=== PATIENT | male | born 1995 | race American Indian/Alaskan Native ===

== ENCOUNTER 2016-10-13 11:10 | Emergency (ER) | payer OTHER ==
[~2016-10-13] VITALS: Ht 175.3 cm; Wt 91.6 kg
[~2016-10-13 11:10] MED LIST: IBUP-1050 PO
[2016-10-13 11:12] VITALS: Ht 175.3 cm; Wt 91.6 kg
[2016-10-13] MEDS ORDERED: [UNRECOGNIZED DRUG - OTHER] PO (11:28)
[2016-10-13] MEDS ORDERED: ERYOPO OPB (12:33)
[2016-10-13 12:55] VITALS: BP 151/89; PULSE 77; TEMP 36.5; O2SAT 96
--- NOTE | 2016-10-14 09:39 | EMERGENCY ROOM VISIT NOTE ---
ED Visit Note First contact with patient: 11:25 Chief Complaint: Sore throat and cough. History of Present Illness: Mr. Bella is a 21-year-old male who ambulates into the ED complaining of throat pain, cough, nasal congestion and bilateral eye drainage. Patient reports he has had throat pain for the last week. He describes his pain as a sharp sensation. He rates his discomfort 8/10. The pain is nonradiating. Pain worsens with swallowing. He has not identified any alleviating factors related to the pain. He has taken one dose of Tylenol Cold and Sinus approximately 24 hours ago without relief of his discomfort. Associated with his throat pain he reports he has had nasal congestion, nonproductive cough, bilateral ear pain and today he awoke with his eyes matted shut and has had eye drainage since this morning. He denies fevers, chills, sweats, skin eruptions, skin color changes, headache, dizziness, lightheadedness, visual changes, hearing changes, ear drainage, neck pain/stiffness, painful talking, drooling, inability to swallow, chest pain, shortness of breath, hemoptysis, wheezing, abdominal pain, nausea, vomiting, decreased appetite. Review of Systems: As noted above in history of present illness. 8 body systems were reviewed and found to be negative as noted above. Past Medical History: Unspecified stomach disorder. Current Medications: As noted above. Allergies to Medications: Patient denies. Social History: Patient is currently University student; he feels safe in his home environment; he admits to tobacco and alcohol use. Physical Examination: Vital Signs: Date Time Temp Pulse Resp B/P Pulse Ox O2 Delivery O2 Flow Rate FiO2 10/13/16 12:55 36.5 77 18 151/89 96 10/13/16 11:12 36.5 77 18 151/89 96 Room Air GENERAL: 21-year-old male in mild distress due to symptoms, nontoxic-appearing, afebrile and hemodynamically stable. NEUROLOGICAL: Awake, alert and oriented to person, place and time. Answering questions appropriately and following commands. Normal gait. Good hand eye coordination. SKIN: Warm, dry and pink. No soft tissue eruptions or trauma noted. HEENT: Atraumatic and normocephalic. PERRLA. EOMI without nystagmus. Sclera injected and conjunctiva mildly inflamed without active drainage. No tenderness over the frontal or maxillary sinuses. No external ear tenderness. Auditory canals are pink and patent. Tympanic membranes are pearly bell with normal light reflex. No drainage from naris but audible congestion. Oral cavity moist and pink. Airway patent. Uvula midline and no abscesses are seen. Pharynx is mildly erythematous but not edematous. No tonsillar hypertrophy or exudates. Posterior nasal dripping's were noted. Speech normal. No lymphadenopathy. Trachea midline. No jugular venous distention. No laryngeal tenderness. BACK: No tenderness over the bony cervical spine. Full range of motion of the cervical spine. THORAX: Lungs sounds are clear to auscultation and equal bilaterally with symmetrical chest wall. No wheezing, rales or rhonchi. ED Course: Patient is assessed as noted above. Rapid Strep Screen: Negative. Culture pending. Patient was educated about tonight's findings and instructed on his treatment plan; he verbalizes understanding and agreement with this plan. Clinical Impression: Acute pharyngitis. Bilateral conjunctivitis. Disposition: Patient discharged home in stable condition; prior to departure he was reassessed and subjectively reported he was pain-free. Plan: Patient was encouraged to alternate ibuprofen and acetaminophen every 3 hours as needed for pain. Patient was prescribed erythromycin ophthalmic ointment and instructed to use a half and under the lower eyelid 2 times a day for 5 days. Patient was encouraged to increase clear fluids and to use a liquid/mechanical soft diet until resolution of throat discomfort. Patient was encouraged to follow-up at [facility] [address] for recheck if no better in 3-5 days. Patient was encouraged return the ED for worsening/uncontrolled pain, uncontrolled fevers, vomiting, inability to swallow, drooling, worsening eye drainage, visual changes or any new/concerning symptoms.
== END 2016-10-13 12:57 | disposition home or self-care (01) ==
LOC: C.EDB 11:11 → C.EDC 12:57
DX: J02.9 Acute pharyngitis, unspecified (principal); H10.9 Unspecified conjunctivitis; Z72.0 Tobacco use

== ENCOUNTER 2016-10-16 08:58 | Emergency (ER) | payer OTHER ==
[~2016-10-16] VITALS: Ht 175.3 cm; Wt 91.4 kg
[~2016-10-16 08:58] MED LIST changes: +ERYOPO OPB; -IBUP-1050 PO; +[UNRECOGNIZED DRUG - OTHER] PO
[2016-10-16 09:05] VITALS: TEMP 36.7; Ht 175.3 cm; Wt 91.4 kg
[2016-10-16] MEDS ORDERED: AMOX500C3 PO (10:00)
[2016-10-16 10:14] VITALS: BP 135/98; PULSE 60; O2SAT 98
--- NOTE | 2016-10-17 18:02 | EMERGENCY ROOM VISIT NOTE ---
History First contact with patient: 09:13 Chief Complaint: SORETHROAT Stated Complaint: SEVERE SORE THROAT AND EAR PAIN History of Present Illness The patient is a 21 year old male who presents to the Emergency Room with complaints of sore throat and ear pain. Patient was seen here last week for similar symptoms. He also had conjunctivitis at that time. He was given erythromycin ointment and states his eyes have improved. His rapid strep at that time was negative. He states the throat continues to hurt and gives him difficulty swallowing. He states he has had fevers, chills, and sweats. No additional treatment. He has developed left-sided ear pain. No known ill contacts. The friend accompanies him today. He denies any cough, shortness of breath, or abdominal pain. No nausea, vomiting, or diarrhea. Review of Systems REVIEW OF SYSTEM: HEENT: No dizziness, visual problems, hearing loss, or tinnitus. PULMONARY: No cough, shortness of breath, sputum production or hemoptysis. CARDIOVASCULAR: No chest pain, palpitations, shortness of breath or peripheral edema. GASTROINTESTINAL: No diarrhea, constipation, nausea, vomiting, or abdominal pain. GENITOURINARY: No dysuria, frequency, urgency or nocturia. NEUROLOGIC: No weakness, muscle tenderness, epilepsy or history of neurological problems. MUSCULOSKELETAL: No history of joint tenderness/swelling. No history of arthritis or arthralgias. SKIN: No rashes or lesions. PSYCHIATRIC: No history of depression or mental illness. ENDOCRINE: No history of diabetes, thyroid disorders, or abnormal hair growth. Past Medical/Surgical History Medical Problems: (1) No pertinent past medical history Surgical Problems: (1) No pertinent past surgical history Family History Diabetes mellitus Hypertension Social History Smoking Status: Current Every Day Smoker Smokeless Tobacco Use: No Alcohol Use: none Drug Use: none Marital Status: single Housing Status: lives with roommate Occupation Status: [employer] student Current/Historical Medications Scheduled Amoxicillin (Amoxil), 500 MG PO TID Allergies Coded Allergies: No Known Allergies (Unverified , 05/16/16) Physical Exam Vital Signs Date Time Temp Pulse Resp B/P Pulse Ox O2 Delivery O2 Flow Rate FiO2 10/16/16 10:14 60 17 135/98 98 10/16/16 09:05 96 Room Air 10/16/16 09:05 36.7 60 18 171/109 97 Pain Rating (0-10): 9.0 Physical Exam Gen.: Well-developed, well-nourished, young male, in obvious discomfort. No acute distress. Sitting on a bed. Alert and oriented. Skin:Warm and moist with good turgor. No rashes or lesions. No ecchymosis or erythema. The patient is not diaphoretic. No abrasions. HEENT: Normocephalic atraumatic. Eyes PERRLA, EOMI. No conjunctiva or scleral injection. Ears TMs intact bilaterally with good light reflex on the right. No erythema or bulging. No hemotympanum. Left TM is erythemic and mildly bulging. Light reflexes distorted. No pus visible. He does have moderate wax in both canals. Nares patent bilaterally without turbinate enlargement. No significant drainage. No epistaxis. Oropharynx with erythema but no exudate. Uvula midline, oral mucosa moist. No lesions present. Lymphatics are palpated with anterior chain enlargement and tenderness on the left. No Posterior chain enlargement or tenderness. Heart: Heart RRR. No MGR. Peripheral pulses are 2+. Lungs: Lungs are clear to auscultation. No crackles rhonchi or wheezing. Good air movement. The patient is able to take a deep breath. Medical Decision & Procedures ED Course Patient was educated regarding today's findings. Conservative care measures were discussed. His previous rapid strep was negative. I will not repeat that. He has an obvious left ear infection. He'll be treated with amoxicillin 500 mg 3 times a day 10 days. Continue with ibuprofen 600 mg and Tylenol 650 mg every 6 hours as needed for pain/fever control. He is afebrile in the department currently. Start Mucinex daily until his head congestion resolves. Maintain hydration. Decrease smoking. Follow-up with [facility] if symptoms are not improving over the next 5 days. He may also return to the ED. Medical Decision Possibility of sinusitis, strep pharyngitis, viral pharyngitis, tonsillitis, otitis media, otitis externa, mumps, mono, and viral URI were considered. Impression Primary Impression: Left otitis media Additional Impression: Sore throat Departure Information Dispostion Home / Self-Care Condition GOOD Prescriptions Amoxicillin (AMOXIL) 500 Mg Cap 500 MG PO TID, #30 CAP Prov: Freddie Cortes,P.A. 10/16/16 Forms HOME CARE DOCUMENTATION FORM, MOTRIN USE, TYLENOL USE, IMPORTANT VISIT INFORMATION Patient Instructions My [facility] [employer] Additional Instructions Mucinex daily until congestion resolves Ibuprofen 600 mg every 6 hours with food Add Tylenol 650 mg every 6 hours until pain resolves Amoxil 1 pill 3 times a day 10 days Maintain hydration Decrease smoking Follow-up with [facility] if symptoms are not improving in 5 days Problem Qualifiers Primary Impression: Left otitis media Otitis media type: suppurative Chronicity: acute Recurrence: not specified as recurrent Spontaneous tympanic membrane rupture: without spontaneous rupture Qualified Codes: H66.002 - Acute suppurative otitis media without spontaneous rupture of ear drum, left ear
== END 2016-10-16 10:15 | disposition home or self-care (01) ==
LOC: C.EDB 09:00
DX: H66.002 Acute suppurative otitis media without spontaneous rupture of ear drum, left ear (principal); J02.9 Acute pharyngitis, unspecified; F17.210 Nicotine dependence, cigarettes, uncomplicated

== ENCOUNTER 2017-08-26 16:25 | Emergency (ER) | payer OTHER ==
[~2017-08-26] VITALS: Ht 172.7 cm; Wt 85.3 kg
[2017-08-26 16:39] VITALS: BP 158/98; PULSE 70; TEMP 36.9; O2SAT 98; Ht 172.7 cm; Wt 85.3 kg
[2017-08-26] MEDS ORDERED: IBUPROFEN 600 MG TAB PO STA (16:54)
--- NOTE | 2017-08-26 17:09 | DIAGNOSTIC IMAGING REPORT ---
R SHOULDER MIN 2 VIEWS ROUTINE CLINICAL HISTORY: R shoulder pain COMPARISON: None. DISCUSSION: No fractures or dislocations are visualized. There are no visible periarticular calcifications. IMPRESSION: No fractures or dislocations identified. Electronically signed by: Soto Noel M.D. 08/26/2017 5:07 PM Dictated Date/Time: 08/26/2017 5:07 PM
--- NOTE | 2017-08-26 23:58 | EMERGENCY ROOM VISIT NOTE ---
ED Visit Note First contact with patient: 16:34 Chief Complaint: Right shoulder pain. History of Present Illness: Mr. Bella is a 22-year-old male who ambulates into the ED complaining of posterior right shoulder pain. Patient reports he injured his right shoulder many years ago but does not remember this circumstances and does not remember seeking medical attention. Patient reports last evening he was lifting heavy boxes showing them into his car when he felt a popping sensation in the posterior aspect of the right shoulder. He reports since that time he has been having shoulder pain over the area of the lateral trapezius muscle and supraspinatus muscle. He describes it as an achy sensation. He rates his discomfort 7/10. His pain worsens minimally with palpation but moderately with internal rotation and abduction. He has not identified any alleviating factors related to the pain. He has not taken any medications for pain prior to arrival at the hospital. Additionally he reports last night he could not sleep well because every time he rolled on to the shoulder pain and he noted when he had an increase in pain he had nausea but no vomiting. He denies skin eruptions, skin color changes, neck pain, headache, chest pain, shortness of breath, right upper extremity weakness/numbness/tingling. Review of Systems: As noted above in history of present illness. Past Medical History: As previously noted. Current Medications: Patient denies. Allergies to Medications: Patient denies. Social History: Patient is currently employed; he feels safe in his home environment; he admits to tobacco and alcohol use. Physical Examination: Vital Signs: Date Time Temp Pulse Resp B/P (MAP) Pulse Ox O2 Delivery O2 Flow Rate FiO2 08/26/17 16:39 36.9 70 18 158/98 98 Room Air GENERAL: 22-year-old male in mild distress due to pain, nontoxic-appearing, afebrile and hemodynamically stable. NEUROLOGICAL: Awake, alert and oriented to person, place and time. Answering questions appropriately and following commands. Normal gait. Good hand eye coordination. No focal motor sensory deficits. SKIN: Warm, dry and pink. No soft tissue eruptions or trauma noted. BACK: No tenderness over the bony spine. No paraspinous muscle spasm. RIGHT UPPER EXTREMITY: No gross bony deformity. No tenderness over the scapula , clavicle, acromioclavicular joint, humeral head and glenoid humeral joint. Patient is a well-developed male. He does have mild tenderness over the distal trapezius muscle and supraspinatus muscle. I do not appreciate any spasm. He does have full range of motion but complains of pain with internal rotation and abduction. 5/5 muscle strength in all movements of the shoulder, elbow, forearm and hand. Extremity is warm and pink and capillary refill is brisk. ED Course: Patient is assessed as noted above. Patient was given 600 mg of ibuprofen by mouth for pain. Right Shoulder X-Rays: Were read by myself and the radiologist showing no acute fractures or dislocations Patient was educated about today's findings and instructed on his treatment plan ; he verbalizes understanding and agreement with this plan. Clinical Impression: Right shoulder pain. Decision-Making: Initially my differential diagnosis I considered acromioclavicular joint separation, glenohumeral joint dislocation, muscle strain, ligamentous sprain and other causes. Disposition: Patient discharged home in stable condition; prior to departure he was reassessed and objectively reported he was feeling better and rated his discomfort 3/10. Plan: Comfort measures were discussed with the patient including rest, ice and alternating ibuprofen or Tylenol. Patient was encouraged to follow-up with [facility] if no better in 7 -10 days. Patient was encouraged return ED for worsening/uncontrolled pain, weakness/ numbness/tingling of the shoulder or arm or any new/concerning symptoms
== END 2017-08-26 17:30 | disposition home or self-care (01) ==
LOC: C.EDB 16:26 → C.EDD 17:30
DX: M25.511 Pain in right shoulder (principal); F17.200 Nicotine dependence, unspecified, uncomplicated

== ENCOUNTER 2017-12-10 21:07 | Emergency (ER) | payer OTHER ==
[~2017-12-10] VITALS: Ht 175.3 cm; Wt 85.0 kg
[2017-12-10 21:12] VITALS: TEMP 36.7; Ht 175.3 cm; Wt 85.0 kg
--- NOTE | 2017-12-10 21:56 | EMERGENCY ROOM VISIT NOTE ---
History First contact with patient: 21:15 Chief Complaint: SORETHROAT Stated Complaint: EARS,NOSES AND THROAT History of Present Illness The patient is a 22 year old male who presents to the Emergency Room with complaints of congestion. The patient reports that he has had nasal congestion for 2 weeks. His sense of taste has declined. He states that both of his ears feel clogged and he feels he has some difficulty hearing. He took a few days of some leftover amoxicillin but states this did not improve his symptoms. He rates his overall discomfort a 6/10. He denies any fevers, headaches, neck pain , cough or shortness of breath. He denies sore throat. Review of Systems A complete 10 point review of systems was reviewed with the patient with pertinent positives and negatives as per history of present illness. All else were negative. Past Medical/Surgical History Medical Problems: (1) No pertinent past medical history Surgical Problems: (1) No pertinent past surgical history Family History Diabetes mellitus Hypertension Social History Smoking Status: Current Every Day Smoker Alcohol Use: none Drug Use: none Marital Status: single Housing Status: lives with roommate Occupation Status: [employer] student Current/Historical Medications No Active Prescriptions or Reported Meds Physical Exam Vital Signs Date Time Temp Pulse Resp B/P (MAP) Pulse Ox O2 Delivery O2 Flow Rate FiO2 12/10/17 22:20 83 18 153/92 97 12/10/17 21:12 36.7 82 18 155/100 97 Room Air Physical Exam VITALS: Vitals are noted on the nurse's note and reviewed by myself. Vital signs stable. GENERAL: This is a 22-year-old male, in no acute distress, nondiaphoretic, well- developed well-nourished. SKIN: The skin was without rashes. EARS: External auditory canals clear, tympanic membranes pearly bell without erythema or effusion bilaterally. EYES: Pupils equal round and reactive to light and accommodation. No conjunctival injection. NOSE: Patent, clear nasal discharge bilaterally. MOUTH: Mucous membranes moist. Tonsils are not enlarged. Pharynx minimally erythematous with postnasal drip present. NECK: Supple without nuchal rigidity. No lymphadenopathy. HEART: Regular rate and rhythm without murmurs gallops or rubs. LUNGS: Clear to auscultation bilaterally without wheezes, rales or rhonchi. NEURO: Patient was alert and oriented to person place and time. Medical Decision & Procedures Medical Decision Differential diagnosis includes upper respiratory infection, seasonal allergies , viral illness, sinusitis, among others. The patient was evaluated as above. There are no significant findings on exam. Patient's symptoms are most consistent with seasonal allergies. Patient was advised to take an [id number] antihistamine with decongestant and start Flonase nasal spray as well to help relieve symptoms. He was instructed to follow-up with [facility] this week if symptoms have not improved for a recheck. He verbalized understanding of my assessment and treatment plan and was discharged home in good condition. Medication Reconcilliation Current Medication List: was personally reviewed by me Blood Pressure Screening Patient's blood pressure: Elevated blood pressure Blood pressure disposition: Elevated BP felt to be situational Impression Primary Impression: Nasal congestion Departure Information Dispostion Home / Self-Care Condition GOOD Prescriptions No Active Prescriptions or Reported Meds Referrals [facility] (PCP) Patient Instructions My [facility] Additional Instructions You should continue the Claritin with decongestant daily. You should use [id number] Flonase nasal spray daily, first thing in the morning. You may also take Benadryl (diphenhydramine) 25-50 mgs every 6 hours to further help with congestion. This is an antihistamine medication but it will make you drowsy. Follow-up with [facility] this week if you are having persistent symptoms despite these medications.
[2017-12-10 22:20] VITALS: BP 153/92; PULSE 83; O2SAT 97
== END 2017-12-10 22:20 | disposition home or self-care (01) ==
LOC: C.EDB 21:08 → C.EDD 22:20
DX: R09.81 Nasal congestion (principal); F17.200 Nicotine dependence, unspecified, uncomplicated

== ENCOUNTER 2017-12-30 11:10 | Emergency (ER) | payer OTHER ==
[~2017-12-30] VITALS: Ht 175.3 cm; Wt 82.8 kg
[2017-12-30 11:15] VITALS: TEMP 36.6; Ht 175.3 cm; Wt 82.8 kg
[2017-12-30] MEDS ORDERED: KETOROLAC TROMETHAMINE 30 MG/ML VIAL IV STA (11:32)
[2017-12-30] MEDS ORDERED: PROMETHAZINE HCL INJ 6.25 MG in SODIUM CHLORIDE 0.9% 50ML 50 ML IV STA (11:32)
[2017-12-30] MEDS ORDERED: ONDANSETRON INJ 2 MG/ML 2 ML VIAL IV STA (11:32)
[2017-12-30] MEDS ORDERED: SODIUM CHLORIDE 0.9% 1000ML 2,000 ML IV STA (11:32)
[2017-12-30 11:51] LABS: BASO % 0.1 %; BASO ABS # 0.02 K/uL (0-0.2); EOS % 0.5 %; EOS ABS # 0.08 K/uL (0-0.5); HEMATOCRIT 47.2 % (42-52); HEMOGLOBIN 17.1 g/dL (14.0-18.0); IG# 0.08 K/uL (0.00-0.02); LYMPH % 5.2 %; LYMPH ABS # 0.78 K/uL (1.2-3.4); MEAN CELL VOLUME 82.7 fL (80-100); MEAN CORPUSCULAR HEMOGLOBIN 29.9 pg (25-34); MEAN CORPUSCULAR HGB CONC 36.2 g/dl (32-36); MEAN PLATELET VOLUME 8.4 fL (7.4-10.4); MONO % 3.3 %; NEUT % 90.4 %; NEUT ABS # 13.64 K/uL (1.4-6.5); PLATELET COUNT 229 K/uL (130-400); RED CELL DISTRIBUTION WIDTH CV 12.9 % (11.5-14.5); RED CELL DISTRIBUTION WIDTH SD 38.9 fL (36.4-46.3)
[2017-12-30 12:11] LABS: ALBUMIN 4.2 gm/dl (3.4-5.0); CALCIUM 8.8 mg/dl (8.5-10.1); CREATININE 1.24 mg/dl (0.60-1.40); POTASSIUM 3.9 mmol/L (3.5-5.1)
--- NOTE | 2017-12-30 12:24 | DIAGNOSTIC IMAGING REPORT ---
ABDOMEN 2VIEW W/PA CHEST RTN HISTORY: 22 years-old Male ABDOMINAL PAIN/GI acute generalized abdominal and atypical chest pain COMPARISON: None available TECHNIQUE: PA view of the chest with erect and supine views of the abdomen FINDINGS: Cardiomediastinal and hilar silhouettes are within normal limits. No pneumothorax, pleural effusion, focal airspace consolidation or overt pulmonary edema. Bones of the chest appear grossly intact. No pneumoperitoneum on the upright projection. There are a few small bowel air-fluid levels scattered throughout the abdomen. Mildly prominent air-filled small bowel loop of left upper abdomen. No urolith or organomegaly. No fracture. IMPRESSION: 1. No acute process of the chest. 2. Nonobstructive bowel gas pattern without pneumoperitoneum. 3. A few scattered small bowel air-fluid levels throughout the abdomen suggest enteritis or ileus with mildly a single mildly prominent air-filled left upper quadrant small bowel loop. The above report was generated using voice recognition software. It may contain grammatical, syntax or spelling errors. Electronically signed by: Yogesh Cooper M.D. 12/30/2017 12:22 PM Dictated Date/Time: 12/30/2017 12:20 PM
[2017-12-30] MEDS ORDERED: ONDA4TAB10 SL (13:21)
--- NOTE | 2017-12-30 13:46 | EMERGENCY ROOM VISIT NOTE ---
History Report prepared by Catherine: Richy Vogt Under the Supervision of: Dr. Broderick Gunderson M.D. First contact with patient: 11:28 Chief Complaint: DIARRHEA Stated Complaint: SEVERE DIARRHEA & VOMITING W/STOMACH PAIN History of Present Illness The patient is a 22 year old male who presents to the Emergency Room with complaints of persistent diarrhea beginning today. The patient states that he ate a sandwich from [employer] last night and did not feel well afterwards. He notes that he woke up this morning and vomited. He also complains of abdominal pain and chills. He reports that he vomited four times and had five episodes of diarrhea this morning. The patient states that his abdominal pain does not feel better after he vomits or has an episode of diarrhea. He denies any fever and known sick contacts. He notes that he tried drinking additional water today because he felt dehydrated. He reports that he does not have a history of abdominal surgeries. He rates his pain as a 10/10. Source of History: patient Onset: today Position: abdomen Symptom Intensity: 10/10 Quality: other (diarrhea x5) Timing: other (persistent) Associated Symptoms: + chills, + vomiting (x4), + abdominal pain, No fevers Review of Systems See HPI for pertinent positives & negatives. A total of 10 systems reviewed and were otherwise negative. Past Medical & Surgical Medical Problems: (1) No pertinent past medical history Surgical Problems: (1) No pertinent past surgical history Family History Diabetes mellitus Hypertension Social History Smoking Status: Current Every Day Smoker Alcohol Use: none Drug Use: none Marital Status: single Housing Status: lives with roommate Occupation Status: [employer] student Current/Historical Medications Scheduled Ondasetron Odt (Zofran Odt), 4 MG SL Q6H Allergies Coded Allergies: No Known Allergies (Unverified , 08/26/17) Physical Exam Vital Signs Date Time Temp Pulse Resp B/P (MAP) Pulse Ox O2 Delivery O2 Flow Rate FiO2 12/30/17 14:00 81 16 149/89 99 12/30/17 11:15 36.6 88 18 101/61 100 Room Air Physical Exam GENERAL: Patient is in no acute distress. HEENT: No acute trauma, normocephalic atraumatic, mucous membranes moist, no nasal congestion, no scleral icterus. NECK: No stridor, no adenopathy, no meningismus, trachea is midline. LUNGS: Clear to auscultation bilaterally, no wheeze, no rhonchi, breath sounds equal. HEART: Without murmurs gallops or rubs, regular rate and rhythm. ABDOMEN: Soft, mildly diffusely tender, bowel sounds positive, no hernias, no peritonitis. EXTREMITIES: No cyanosis or edema, full range of motion of all the joints without pain or difficulty, no signs for acute trauma. NEUROLOGIC: Oriented x 3, no acute motor or sensory deficits, no focal weakness. SKIN: No rash, no jaundice, no diaphoresis. Medical Decision & Procedures ER Provider Diagnostic Interpretation: Radiology results as stated below per my review and radiologist interpretation: ABDOMEN 2VIEW W/PA CHEST RTN FINDINGS: Cardiomediastinal and hilar silhouettes are within normal limits. No pneumothorax, pleural effusion, focal airspace consolidation or overt pulmonary edema. Bones of the chest appear grossly intact. No pneumoperitoneum on the upright projection. There are a few small bowel air-fluid levels scattered throughout the abdomen. Mildly prominent air-filled small bowel loop of left upper abdomen. No urolith or organomegaly. No fracture. IMPRESSION: 1. No acute process of the chest. 2. Nonobstructive bowel gas pattern without pneumoperitoneum. 3. A few scattered small bowel air-fluid levels throughout the abdomen suggest enteritis or ileus with mildly a single mildly prominent air-filled left upper quadrant small bowel loop. The above report was generated using voice recognition software. It may contain grammatical, syntax or spelling errors. Electronically signed by: Yogesh Cooper M.D. 12/30/2017 12:22 PM Laboratory Results 12/30/17 11:40 Red Blood Count 5.71, Mean Corpuscular Volume 82.7, Mean Corpuscular Hemoglobin 29.9, Mean Corpuscular Hemoglobin Concent 36.2, Mean Platelet Volume 8.4, Neutrophils (%) (Auto) 90.4, Lymphocytes (%) (Auto) 5.2, Monocytes (%) (Auto) 3.3, Eosinophils (%) (Auto) 0.5, Basophils (%) (Auto) 0.1, Neutrophils # (Auto) 13.64, Lymphocytes # (Auto) 0.78, Monocytes # (Auto) 0.50, Eosinophils # (Auto) 0.08, Basophils # (Auto) 0.02 12/30/17 11:40 Test 12/30/17 11:40 White Blood Count 15.10 K/uL (4.8-10.8) Red Blood Count 5.71 M/uL (4.7-6.1) Hemoglobin 17.1 g/dL (14.0-18.0) Hematocrit 47.2 % (42-52) Mean Corpuscular Volume 82.7 fL (80-100) Mean Corpuscular Hemoglobin 29.9 pg (25-34) Mean Corpuscular Hemoglobin Concent 36.2 g/dl (32-36) Platelet Count 229 K/uL (130-400) Mean Platelet Volume 8.4 fL (7.4-10.4) Neutrophils (%) (Auto) 90.4 % Lymphocytes (%) (Auto) 5.2 % Monocytes (%) (Auto) 3.3 % Eosinophils (%) (Auto) 0.5 % Basophils (%) (Auto) 0.1 % Neutrophils # (Auto) 13.64 K/uL (1.4-6.5) Lymphocytes # (Auto) 0.78 K/uL (1.2-3.4) Monocytes # (Auto) 0.50 K/uL (0.11-0.59) Eosinophils # (Auto) 0.08 K/uL (0-0.5) Basophils # (Auto) 0.02 K/uL (0-0.2) RDW Standard Deviation 38.9 fL (36.4-46.3) RDW Coefficient of Variation 12.9 % (11.5-14.5) Immature Granulocyte % (Auto) 0.5 % Immature Granulocyte # (Auto) 0.08 K/uL (0.00-0.02) Anion Gap 7.0 mmol/L (3-11) Est Creatinine Clear Calc Drug Dose 93.5 ml/min Estimated GFR () 95.0 Estimated GFR (Non- 82.0 BUN/Creatinine Ratio 15.3 (10-20) Calcium Level 8.8 mg/dl (8.5-10.1) Total Bilirubin 0.7 mg/dl (0.2-1) Aspartate Amino Transf (AST/SGOT) 21 U/L (15-37) Alanine Aminotransferase (ALT/SGPT) 30 U/L (12-78) Alkaline Phosphatase 89 U/L (45-117) Total Protein 8.0 gm/dl (6.4-8.2) Albumin 4.2 gm/dl (3.4-5.0) Globulin 3.8 gm/dl (2.5-4.0) Albumin/Globulin Ratio 1.1 (0.9-2) Lipase 45 U/L (73-393) Laboratory results reviewed by me. Medications Administered Medications (Trade) Dose Ordered Sig/Kemal Route Start Time Stop Time Status Last Admin Dose Admin Sodium Chloride 2,000 ml @ 999 mls/hr Q2H1M STAT IV 12/30/17 11:32 12/30/17 13:32 DC 12/30/17 11:50 999 MLS/HR Ondansetron HCl (Zofran Inj) 4 mg NOW STAT IV 12/30/17 11:32 12/30/17 11:33 DC 12/30/17 11:48 4 MG Ketorolac Tromethamine (Toradol Inj) 30 mg NOW STAT IV 12/30/17 11:32 12/30/17 11:33 DC 12/30/17 11:48 30 MG Promethazine HCl 6.25 mg/Sodium Chloride 50.25 ml @ 204 mls/hr NOW STAT IV 12/30/17 11:32 12/30/17 11:46 DC 12/30/17 13:00 204 MLS/HR ED Course 1129: The patient was evaluated in room C11. A complete history and physical exam was performed. 1132: Promethazine HCl 6.25 mg/Sodium Chloride 50.25ml @ 204 mls/hr IV, Toradol Inj 30mg IV, Zofran Inj 4mg IV, Sodium Chloride 2000 ml @ 999 mls/hr IV 1308: I reevaluated and updated the patient. He is feeling a lot better. Upon reexamination of his abdomen, he is nontender. 1357: Reevaluated the patient. Discussed results and discharge instructions: He verbalized understanding and agreement. The patient is ready for discharge. Medical Decision Differential diagnoses include: dehydration, foodborne illness, viral illness, electrolyte imbalance, renal failure, liver failure, and bacterial intestinal infection. There is a moderate leukocytosis at 15,000, this could be consistent with infection or just the stress of his current situation. No concerning anemia. No significant electrolyte abnormality, kidney failure, hepatitis or pancreatitis. Obstruction series shows a possible ileus, no pneumonia, no bowel obstruction or free air. Patient received IV saline, 2 L. He was given IV Zofran, IV Phenergan IV Toradol. He feels markedly improved. I have reexamined the patient's abdomen, he is nontender. I discussed the possibility of early appendicitis with the patient. I talked about the possibility of a viral illness versus a foodborne illness. The patient will return if worsening or not continuing to improve. He was discharged home. Medication Reconcilliation Current Medication List: was personally reviewed by me Blood Pressure Screening Patient's blood pressure: Elevated blood pressure Blood pressure disposition: Elevated BP felt to be situational Impression Primary Impression: Nausea vomiting and diarrhea Additional Impression: Dehydration Scribe Attestation The scribe's documentation has been prepared under my direction and personally reviewed by me in its entirety. I confirm that the note above accurately reflects all work, treatment, procedures, and medical decision making performed by me. Departure Information Dispostion Home / Self-Care Prescriptions Ondasetron Odt (ZOFRAN ODT) 4 Mg Tab 4 MG SL Q6H for Nausea, #10 TAB Prov: Broderick Gunderson M.D. 12/30/17 Referrals [facility] (PCP) Forms HOME CARE DOCUMENTATION FORM, IMPORTANT VISIT INFORMATION, WORK / SCHOOL INSTRUCTIONS Patient Instructions My [facility] Additional Instructions bland diet--crackers, soup, toast, gatorade, rice tylenol otc for pain rest zofran 1-2 tab every 6 hours for nausea return for worsening symptoms or pain or if not improving return for pain in the right lower side as appendicitis is a possibility as we discussed Problem Qualifiers
[2017-12-30 14:00] VITALS: BP 149/89; PULSE 81; O2SAT 99
== END 2017-12-30 14:01 | disposition home or self-care (01) ==
LOC: C.EDB 11:12 → C.EDC 14:01
DX: E86.0 Dehydration (principal); R19.7 Diarrhea, unspecified; R11.2 Nausea with vomiting, unspecified; F17.210 Nicotine dependence, cigarettes, uncomplicated; Z83.3 Family history of diabetes mellitus; Z82.49 Family history of ischemic heart disease and other diseases of the circulatory system